=== PATIENT | female | born 1935 | race Caucasian/White ===

== ENCOUNTER 2016-12-15 10:50 | Day surgery (SDC) | payer MEDICARE ==
[~2016-12-15 10:50] MED LIST: Buffered Lidocaine 1% SYR 3ML* 3 ML/SYR SYRINGE INTRADERM ONE; Dexamethasone IV* 4 MG/ML 1 ML (4 MG) IV SLOW PU ONE
[2016-12-15] MEDS ORDERED: Dexamethasone IV* 4 MG/ML 1 ML (4 MG) ONE (11:10)
[2016-12-15] MEDS ORDERED: fentaNYL* 50 MCG/ML 2 ML VIAL (100 MCG VIAL) ONE (11:41)
[2016-12-15] MEDS ORDERED: Midazolam* 1 MG/ML 2 ML VIAL (2 MG) ONE (11:42)
[2016-12-15] MEDS ORDERED: Bupivacaine 0.5% SDV PF* 30 ML VIAL ONE (12:03)
[2016-12-15 13:46] VITALS: BP 176/68
--- NOTE | 2016-12-16 05:44 | OP ---
DATE OF OPERATION: 12/15/16 - [facility] DATE OF : 31 SURGEON: Titi Serrano MD MAINFRAME SYSTEMS ENGINEER: HERMINIA May ANESTHESIOLOGIST: Dr. Alfaro. ANESTHESIA: Local digital block with monitored anesthesia care with wide awake monitored anesthesia care. PRE-OP DIAGNOSIS: Right long finger mass. POST-OP DIAGNOSIS: Right long finger mass. OPERATIVE PROCEDURE: Excision of right long finger large and deep mass. INDICATIONS: Carrie is an 81-year-old female who over the last couple of years has developed an enlarging right long finger mass just over the volar aspect of the DIP joint. It started to wrap itself around the joint and now there is a little bit of mass dorsally as well. She has no history of gout or any inflammatory arthropathy. She has never had anything like this before. X- rays showed a large calcified mass. We had talked about risks and benefits. 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 She understands this and wished to proceed with mass excision. EBL: 2 mL. COMPLICATIONS: None. FINDINGS: Large lobulated white-appearing mass. DESCRIPTION OF PROCEDURE: Carrie was seen in the preoperative holding area. The correct site and side of procedure were identified. We had a time-out and then using 0.5% Marcaine, I anesthetized the finger with a right long finger digital block. We waited a short time and then came back to the operating room where the arm was prepped and draped in the usual fashion and a formal time-out was performed. I made a volar Kristi incision, continued down from the distal third of the fingertip probe down to the mid aspect of the middle phalanx. A full-thickness flap was raised right off the mass. Care was taken to preserve all the digital nerves encountered. I continued the dissection directly through the reactives under the tumor radially and ulnarly until I got to the level of the volar aspect of the cortex of the distal phalanx. The mass was peeled off the flexor tendon sheath from proximal to distal and the FDP insertion was preserved. I then amputated the largest portion of the mass off the volar aspect of the distal phalanx cortex. This was passed off and sent as a permanent specimen. There was a little bit more mass in both gutters. These were excised in similar fashion using the [address] [place] blade. Any residual mass was excised with the rongeur. I irrigated the finger. I could not really identify any more mass from the volar aspect, and so I did turn the hand over and there was a little bit of a bump over the dorsal aspect of the distal interphalangeal joint. I made a small 2 mm incision there. I did not want to make a large incision because I did not want to risk devascularizing any flaps. I attempted to see if I could remove that bump via that incision, but ultimately it was going to require a larger incision, and so I thought it was wiser just to leave that alone for now. I irrigated that and placed one 5-0 nylon simple interrupted suture through that incision. I then turned the hand back over and irrigated and closed the wound with 5-0 nylon simple sutures. The finger had been exsanguinated and a Tourni-Cot placed prior to making skin incision. After the wound was closed, the Tourni-Cot was removed and the finger pinked up immediately. I should note that prior to closing the skin, I did have to contour the flaps and excise some excess skin. Ultimately, everything closed up nicely. The finger was dressed with Xeroform, 4x4's, some 1-inch Lizbeth, and a very loose Coban wrap. She was then taken to the recovery room in stable condition. [id number]/[facility] #: [id number] [facility]
== END 2016-12-15 13:42 | disposition home or self-care (01) ==
LOC: OREAST 10:50
PROVIDERS: ATTEND Orthopaedic Surgery Hand Surgery
DX: E83.59 Other disorders of calcium metabolism (principal); R22.31 Localized swelling, mass and lump, right upper limb; Z95.5 Presence of coronary angioplasty implant and graft; Z95.0 Presence of cardiac pacemaker; I73.9 Peripheral vascular disease, unspecified; N18.9 Chronic kidney disease, unspecified
CPT/HCPCS: 88305; J1100; J2250; J3010

== ENCOUNTER 2017-07-10 08:49 | Emergency (ER) | payer MEDICARE ==
--- NOTE | 2017-07-10 08:54 | UC ---
Respiratory Complaint HPI - HPI Summary HPI Summary: 82 YEAR OLD FEMALE PRESENTS WITH COMPLAINS OF COUGH, CHEST CONGESTION, AND POST NASAL DRIP. - History of Current Complaint Stated Complaint: CONGESTION COUGH Time Seen by Provider: 07/10/17 08:52 Hx Obtained From: Patient Onset/Duration: Sudden Onset Timing: Constant Severity Initially: Moderate Severity Currently: Moderate Pain Scale Used: 0-10 Numeric - 5 - Allergies/Home Medications Allergies/Adverse Reactions: Allergies Allergy/AdvReac Type Severity Reaction Status Date / Time Penicillins Allergy Nausea And Verified 07/10/17 09:02 Vomiting Sulfa Antibiotics Allergy anger Verified 07/10/17 09:02 Home Medications: Home Medications Acetaminophen [Acetaminophen ER] 650 mg PO Q8H PRN 07/10/17 [History Confirmed 07/10/17] Allopurinol TAB* [Zyloprim 100 MG TAB*] 100 mg PO DAILY 07/10/17 [History Confirmed 07/10/17] Aspirin EC Low Dose* [Ecotrin EC Low Dose 81 MG*] 81 mg PO DAILY 07/10/17 [ History Confirmed 07/10/17] Cholecalciferol TAB* [Vitamin D TAB*] 1,000 unit PO DAILY 07/10/17 [History Confirmed 07/10/17] Furosemide TAB* [Lasix TAB*] 20 - 40 mg PO DAILY 07/10/17 [History Confirmed 03/21] Irbesartan (NF) [Avapro (NF)] 150 mg PO DAILY 07/10/17 [History Confirmed ] Isosorbide Dinitrate TAB* [Isordil TAB*] 30 mg PO DAILY 07/10/17 [History Confirmed 07/10/17] Nitroglycerin TAB 0.4 MG* 0.4 mg SL Q5M PRN 07/10/17 [History Confirmed 07/10/17 ] Rosuvastatin (NF) [Crestor (NF)] 5 mg PO MOWEFR 07/10/17 [History Confirmed 03/21] cloNIDine TAB* [Catapres 0.1 MG TAB*] 0.1 mg PO BID 07/10/17 [History Confirmed 07/10/17] PMH/Surg Hx/FS Hx/Imm Hx Previously Healthy: Yes - Surgical History Surgical History: Yes Surgery Procedure, Year, and Place: Hip replacement,, 2011, [place] bilateral cataracts., 2006. hysterectomy, 1970s - Social History Alcohol Use: Occasionally Alcohol Amount: 3 per week Substance Use Type: None Smoking Status (MU): Former Smoker Amount Used/How Often: social only When Did the Patient Quit Smoking/Using Tobacco: 30 years ago Household Exposure Type: Cigarettes Review of Systems Constitutional: Negative Skin: Negative Eyes: Negative ENT: Sore Throat, Nasal Discharge, Sinus Congestion, Sinus Pain/Tenderness Respiratory: Negative Cardiovascular: Negative Gastrointestinal: Negative Genitourinary: Negative Motor: Negative Neurovascular: Negative Musculoskeletal: Negative Neurological: Negative Psychological: Negative All Other Systems Reviewed And Are Negative: Yes Physical Exam Triage Information Reviewed: Yes Vital Signs Reviewed: Yes Eye Exam: Normal ENT: Positive: Pharyngeal erythema, Nasal congestion, Nasal drainage Dental Exam: Normal Neck exam: Normal Neck: Positive: 1 Respiratory Exam: Normal Cardiovascular Exam: Normal Abdominal Exam: Normal Musculoskeletal Exam: Normal Neurological Exam: Normal Psychological Exam: Normal Skin Exam: Normal Respiratory Course/Dx - Differential Dx/Diagnosis Provider Diagnoses: SINUS CONGESTION. COUGH. POST NASAL DRIP Discharge - Discharge Plan Condition: Stable Disposition: HOME Prescriptions: Albuterol HFA INHALER* [Ventolin HFA Inhaler*] 1 puff INH Q6H PRN #1 mdi PRN Reason: Wheezing Amoxicillin PO (*) [Amoxicillin 875 MG (*)] 875 mg PO BID #20 tab Benzonatate [TESSALON 200 MG CAP] 200 mg PO TID PRN #30 cap PRN Reason: Cough guaiFENesin/CODIEN 100MG-10MG* [Robitussin AC 100Mg-10Mg*] 5 ml PO Q8H PRN #120 udc MDD 15 ml PRN Reason: Cough Patient Education Materials: Bronchospasm (ED), Acute Cough (ED) Referrals: Candy Sy PA [Primary Care Provider] -
[2017-07-10 09:09] VITALS: BP 187/71
== END 2017-07-10 09:20 | disposition home or self-care (01) ==
LOC: UCCORT 08:49
DX: R05 Cough (principal); R09.81 Nasal congestion; R09.82 Postnasal drip; Z87.891 Personal history of nicotine dependence
CPT/HCPCS: 99212; G0463